=== PATIENT | female | born 1960 | race Caucasian/White ===

== ENCOUNTER 2018-11-12 20:07 | Emergency (ER) | payer BC ==
--- NOTE | 2018-11-12 21:26 | RAD REPORT ---
EXAM DESCRIPTION: [place] Single View11/12/2018 9:12 pm CLINICAL HISTORY: Chest pain COMPARISON: none FINDINGS: The lungs appear clear of acute infiltrate. The heart is normal size IMPRESSION: No acute abnormalities displayed
[2018-11-12 22:29] LABS: Absolute Lymphocytes (CBC) 1.1 K/uL (0.7-4.9); Basophils % 1.2 % (0-1.3); Eosinophils % 6.1 % (0-4.4); Hematocrit 21.4 % (36.0-45.0); Lymphocytes % 32.9 % (15.3-44.8); MPV 7.7 fL (7.6-11.3); Monocytes % 7.5 % (3.3-12.3); RBC Red Blood Cell Count 2.06 M/uL (3.86-4.86)
[2018-11-12 22:31] LABS: Protime INR 1.04
[2018-11-12 22:49] LABS: ALT/SGPT 28 U/L (12-78); AST/SGOT 17 U/L (15-37); Albumin 2.7 g/dL (3.4-5.0); Alkaline Phosphatase 66 U/L (45-117); BUN Blood Urea Nitrogen 15 mg/dL (7-18); Bicarbonate 24 mmol/L (21-32); Bilirubin Direct 0.2 mg/dL (0-0.2); Bilirubin Total 0.5 mg/dL (0.2-1.0); Creatine Phosphokinase 29 U/L (26-192); Glucose Level 235 mg/dL (74-106); Magnesium 1.7 mg/dL (1.8-2.4); NT PRO-BNP 2174 pg/mL (<125); Potassium 3.4 mmol/L (3.5-5.1); Protein, Total 6.2 g/dL (6.4-8.2); Sodium Level 144 mmol/L (136-145); Troponin (Emerg Dept Use Only) < 0.02 ng/mL (0.0-0.045)
[2018-11-12 22:56] LABS: Basophilic Stippling 1+; Blood Morphology Comment NOTED (NOT SEEN); Platelet Estimate DECR; Polychromasia 1+
[2018-11-12] MEDS ORDERED: ACETAMINOPHEN 325 MG TABLET ONE (23:43)
[2018-11-13] MEDS ORDERED: THIAMINE 200 MG/2 ML INJ ONE (00:04)
[2018-11-13] MEDS ORDERED: NA CHLORIDE 0.9% 100 ML IV ONE (00:05)
[2018-11-13] MEDS ORDERED: FOLIC ACID 5 MG/ML VIAL ONE (00:05)
[2018-11-13] MEDS ORDERED: NA CHLORIDE 0.9% 1,000 ML ONE ×3 (00:48→03:19)
[2018-11-13] MEDS ORDERED: NA CHLORIDE 0.9% 500 ML ONE (00:48)
--- NOTE | 2018-11-13 00:57 | EDPHYS ---
Physician Documentation [facility] Name: Cheri Medel Age: 58 yrs Sex: Female : 1960 Arrival Date: 11/12/2018 Time: 20:13 Bed 19 Private MD: ED Physician Rod London HPI: 11/13 06:39 This 58 yrs old Female presents to ER via Ambulatory with complaints of BODY gs ACHES. 06:39 The patient presents to the emergency department with rectal bleeding, bright red blood gs with bowel movement, melena. Onset: The symptoms/episode began/occurred 1 month(s) ago. Abdominal pain: none is appreciated. Associated signs and symptoms: Pertinent positives: chills,bodyaches. Historical: - Allergies: 11/12 20:36 trulicity; ak1 20:36 Demerol; ak1 20:36 Codeine; ak1 - Home Meds: 22:11 Zetia 10 mg oral tab 1 tab once daily [Active]; Synthroid 137 mcg Oral tab 1 tab once cc3 daily [Active]; furosemide 80 mg Oral tab [Active]; tramadol 50 mg Oral tab 1 tab every 4 hours [Active]; 22:11 Coricidin HBP oral oral [Active]; Aspirin 80 mg Oral once daily [Active]; irbesartan cc3 300 mg oral tab 1 tab once daily [Active]; prednisone 5 mg oral tab once daily [Active]; 22:11 methotrexate sodium 2.5 mg oral tab [Active]; alendronate cc3 sodium-cholecalciferol(vitamin D3) oral 70 mg 1 per week oral [Active]; Bystolic 10 mg oral tab 1 tab once daily [Active]; remacade infusion [Active]; Allopurinol Oral [Active]; tresiba 50 cc 1 injection per day [Active]; - PMHx: 20:36 Anemia; addrenal insufficency; ak1 - PSHx: 20:36 Cholecystectomy; ; breast reduction; addrenal gland removed on right; ak1 - Immunization history:: Adult Immunizations unknown. - Social history:: Smoking status: Patient/guardian denies using tobacco. - Ebola Screening: : No symptoms or risks identified at this time. ROS: 11/13 06:39 All other systems are negative. gs Exam: 06:39 Head/Face: Normocephalic, atraumatic. Eyes: Pupils equal round and reactive to light, gs extra-ocular motions intact. Lids and lashes normal. Conjunctiva and sclera are non-icteric and not injected. Cornea within normal limits. Periorbital areas with no swelling, redness, or edema. ENT: Nares patent. No nasal discharge, no septal abnormalities noted. Tympanic membranes are normal and external auditory canals are clear. Oropharynx with no redness, swelling, or masses, exudates, or evidence of obstruction, uvula midline. Mucous membranes moist. Neck: Trachea midline, no thyromegaly or masses palpated, and no cervical lymphadenopathy. Supple, full range of motion without nuchal rigidity, or vertebral point tenderness. No Meningismus. Chest/axilla: Normal chest wall appearance and motion. Nontender with no deformity. No lesions are appreciated. Cardiovascular: Regular rate and rhythm with a normal S1 and S2. No gallops, murmurs, or rubs. Normal PMI, no JVD. No pulse deficits. Respiratory: Lungs have equal breath sounds bilaterally, clear to auscultation and percussion. No rales, rhonchi or wheezes noted. No increased work of breathing, no retractions or nasal flaring. Abdomen/GI: Soft, non-tender, with normal bowel sounds. No distension or tympany. No guarding or rebound. No evidence of tenderness throughout. Back: No spinal tenderness. No costovertebral tenderness. Full range of motion. MS/ Extremity: Pulses equal, no cyanosis. Neurovascular intact. Full, normal range of motion. Neuro: Awake and alert, GCS 15, oriented to person, place, time, and situation. Cranial nerves II-XII grossly intact. Motor strength 5/5 in all extremities. Sensory grossly intact. Cerebellar exam normal. Normal gait. 06:39 Constitutional: The patient appears alert, awake. 06:39 Skin: Appearance: Color: pale. Vital Signs: 11/12 20:31 BP 155 / 81; Pulse 118; Resp 18; Temp 98.1; Pulse Ox 97% on R/A; Weight 86.18 kg (R); ak1 Height 5 ft. 7 in. (170.18 cm) (R); Pain 9/10; 21:30 BP 154 / 65; Pulse 107; Resp 18 S; Pulse Ox 96% on R/A; cc3 22:15 BP 148 / 68; Pulse 107; Resp 18 S; Pulse Ox 98% on R/A; cc3 23:00 BP 164 / 71; Pulse 109; Resp 26 S; Pulse Ox 96% on R/A; cc3 07 00:30 BP 139 / 63; Pulse 117; Resp 25 S; Temp 101(O); Pulse Ox 96% on R/A; cc3 01:00 BP 157 / 57; Pulse 113; Resp 22 S; Temp 100.9(O); Pulse Ox 98% on R/A; cc3 01:35 BP 136 / 70; Pulse 112; Resp 25 S; Temp 99.9(O); Pulse Ox 98% on R/A; cc3 01:40 BP 140 / 68; Pulse 109; Resp 26 S; Temp 99.9(O); Pulse Ox 96% on R/A; cc3 01:45 BP 139 / 74; Pulse 105; Resp 20 S; Temp 99.8(O); Pulse Ox 95% on R/A; cc3 01:50 BP 147 / 78; Pulse 106; Resp 22 S; Temp 99.4(O); Pulse Ox 95% on R/A; cc3 02:05 BP 141 / 55; Pulse 109; Resp 23 S; Temp 99.8(O); Pulse Ox 96% on R/A; cc3 02:35 BP 134 / 65; Pulse 93; Resp 23 S; Temp 99.7(O); Pulse Ox 96% on R/A; cc3 02:40 BP 141 / 63; Pulse 92; Resp 26 S; Temp 99.5(O); Pulse Ox 95% on R/A; cc3 03:00 BP 151 / 61; Pulse 93; Resp 23 S; Temp 99.1(O); Pulse Ox 94% on R/A; cc3 04:00 BP 158 / 61; Pulse 92; Resp 22 S; Temp 98.5(O); Pulse Ox 95% on 1 lpm NC; cc3 04:32 BP 158 / 64; Pulse 92; Resp 17 S; Temp 98.3(O); Pulse Ox 96% on 1 lpm NC; cc3 05:00 BP 153 / 59; Pulse 82; Resp 22 S; Temp 98.3(O); Pulse Ox 96% on 1 lpm NC; cc3 06:06 BP 157 / 67; Pulse 85; Resp 18 S; Temp 98.5(O); Pulse Ox 98% on 1 lpm NC; cc3 06:30 BP 107 / 83; Pulse 88; Resp 20 S; Temp 98.4(O); Pulse Ox 98% on 1 lpm NC; cc3 07 20:31 Body Mass Index 29.76 (86.18 kg, 170.18 cm) ak1 MDM: 11/12 20:38 Patient medically screened. 11/13 06:39 Differential diagnosis: diverticulitis, hemorrhoids. Data reviewed: vital signs, nurses gs notes. Data reviewed: lab test result(s), EKG, radiologic studies. Counseling: I had a detailed discussion with the patient and/or guardian regarding: the historical points, exam findings, and any diagnostic results supporting the discharge/admit diagnosis. Response to treatment: the patient's symptoms have markedly improved after treatment. ED course: PT DEVELOPED FEVER PRIOR TO GIVING BLOOD SEPSIS WORKUP ONLY SOURCE URINE GOOD DECREASE LACTATE PLAN TRANSFER [facility] THEY HAVE GI SERVICES.. 11/12 20:39 Order name: Basic Metabolic Panel; Complete Time: 23:09 11/12 20:39 Order name: CBC with Diff; Complete Time: 23:09 11/12 20:39 Order name: LFT's; Complete Time: 23:09 11/12 20:39 Order name: Magnesium; Complete Time: 23:09 11/12 20:39 Order name: NT PRO-BNP; Complete Time: 23:09 11/12 20:39 Order name: PT-INR; Complete Time: 23:09 11/12 20:39 Order name: Troponin (emerg Dept Use Only); Complete Time: 23:09 11/12 20:39 Order name: Flu; Complete Time: 22:32 11/12 20:39 Order name: CPK; Complete Time: 23:09 11/12 22:56 Order name: Manual Differential; Complete Time: 23:09 [facility] 11/12 23:09 Order name: T\T\S 11/13 00:11 Order name: Packed RBC Leukored [facility] 11/13 00:21 Order name: ABO/RH no charge; Complete Time: 00:52 EDRI 11/13 00:54 Order name: Blood Culture* 11/12 20:39 Order name: XRAY Chest (1 view); Complete Time: 21:28 11/13 00:54 Order name: Lactate; Complete Time: 01:58 11/13 00:54 Order name: Procalcitonin; Complete Time: 02:22 11/13 00:55 Order name: Blood Culture [facility] 11/13 01:12 Order name: Urine Dipstick--Ancillary (enter results); Complete Time: 01:58 ar 11/13 02:32 Order name: Urine Microscopic Only ar 11/13 02:33 Order name: Urine Microscopic Only; Complete Time: 03:26 EDRI 11/13 02:43 Order name: Urine Culture [facility] 11/13 04:57 Order name: Lactate Sepsis 2 HR Follow-up; Complete Time: 05:06 [facility] 11/12 20:39 Order name: EKG; Complete Time: 20:44 11/12 20:39 Order name: Cardiac monitoring; Complete Time: 20:40 11/12 20:39 Order name: EKG - Nurse/Tech; Complete Time: 20:49 11/12 20:39 Order name: IV Saline Lock; Complete Time: 22:49 11/12 20:39 Order name: Labs collected and sent; Complete Time: 22:49 11/12 20:39 Order name: O2 Per Protocol; Complete Time: 20:41 11/12 20:39 Order name: O2 Sat Monitoring; Complete Time: 20:41 gs Administered Medications: 11/12 23:30 Drug: Tylenol 650 mg Route: PO; cc3 11/13 00:00 Follow up: Response: No adverse reaction cc3 00:00 Drug: foLIC Acid 1 mg Route: IVPB; Site: left upper arm; cc3 00:30 Follow up: Response: No adverse reaction; IV Status: Completed infusion; IV Intake: [id number] 00:30 Drug: Thiamine 100 mg {Note: left upper arm midline.} Route: IV; Rate: calculated rate; cc3 Site: Other; 01:00 Follow up: Response: No adverse reaction; IV Status: Completed infusion; IV Intake: [id number] 00:30 Drug: NS 0.9% 1000 ml {Note: left upper arm midline.} Route: IV; Rate: 125 ml/hr; Site: [facility] Other; 04:39 Follow up: Response: No adverse reaction; IV Status: Infusion continued upon transfer cc3 01:00 Drug: Ibuprofen 600 mg Route: PO; cc3 01:35 Follow up: Response: No adverse reaction; Temperature is decreased cc3 02:01 CANCELLED (Duplicate Order): NS 0.9% 1000 ml IV at 1000 ml once cc3 02:40 Drug: NS 0.9% 1000 ml {Note: midline left upper arm.} Route: IV; Rate: 1 bolus; Site: [facility] Other; 04:00 Follow up: Response: No adverse reaction; IV Status: Completed infusion; IV Intake: cc3 1000ml 03:00 Drug: HydroCORTISONE 100 mg {Note: midline left upper arm.} Route: IVP; Site: Other; 3 03:15 Follow up: Response: No adverse reaction cc3 03:00 Drug: NS 0.9% 1000 ml {Note: midline left upper arm.} Route: IV; Rate: 1 bolus; Site: [facility] Other; 04:15 Follow up: Response: No adverse reaction; IV Status: Completed infusion; IV Intake: cc3 1000ml 03:15 Drug: Cefepime 1 grams {Note: midline left upper arm.} Route: IVPB; Rate: 200 ml/hr; cc3 Infused Over: 30 mins; Site: Other; 04:00 Follow up: Response: No adverse reaction; IV Status: Completed infusion; IV Intake: cc3 100ml Disposition: 11/13/18 00:[address] [facility]. Diagnosis are Anemia, unspecified, Gastrointestinal hemorrhage, unspecified, Fever, unspecified. - Reason for transfer: Higher level of care. - Accepting physician is ARTHUR. - Condition is Stable. - Problem is an acute exacerbation. - Symptoms have improved. Signatures: Dispatcher [employer] Amisha Latif RN RN ak1 Rod London MD MD gs Cordel, Charlene cc3 Corrections: (The following items were deleted from the chart) 02:01 02:00 NS 0.9% 1000 ml IV at 1000 ml once ordered. cc3 cc3 06:42 00:57 11/13/2018 00:[address] [facility]. Diagnosis is cc3 Anemia, unspecified; Gastrointestinal hemorrhage, unspecified; Fever, unspecified. Reason for transfer: Higher level of care. Accepting physician is RATHUR. Condition is Stable. Problem is an acute exacerbation. Symptoms have improved. gs
--- NOTE | 2018-11-13 00:57 | ER ---
Nurse's Notes [facility] Name: Cheri Medel Age: 58 yrs Sex: Female : 1960 Arrival Date: 11/12/2018 Time: 20:13 Bed 19 Private MD: Diagnosis: Anemia, unspecified;Gastrointestinal hemorrhage, unspecified;Fever, unspecified Presentation: 11/12 20:33 Presenting complaint: Patient states: fatigue X2 days, body aches. pt stated she has an ak1 appointment Friday with her GI at [facility]. pt stated she has had black stools with bright red blood for "months" pt seen and admitted to [facility] last month with pneumonia and was given 2 units of blood, pt believes she is more anemic than usual. Transition of care: patient was not received from another setting of care. Onset of symptoms was November 10, 2018. Risk Assessment: Do you want to hurt yourself or someone else? Patient reports no desire to harm self or others. Initial Sepsis Screen: Does the patient meet any 2 criteria? No. Patient's initial sepsis screen is negative. Does the patient have a suspected source of infection? No. Patient's initial sepsis screen is negative. Care prior to arrival: None. 20:33 Acuity: DAVID 3 ak1 20:33 Method Of Arrival: Ambulatory ak1 Triage Assessment: 20:37 General: Appears in no apparent distress. ill, Behavior is calm, cooperative. ak1 Historical: - Allergies: 20:36 trulicity; ak1 20:36 Demerol; ak1 20:36 Codeine; ak1 - Home Meds: 22:11 Zetia 10 mg oral tab 1 tab once daily [Active]; Synthroid 137 mcg Oral tab 1 tab once cc3 daily [Active]; furosemide 80 mg Oral tab [Active]; tramadol 50 mg Oral tab 1 tab every 4 hours [Active]; 22:11 Coricidin HBP oral oral [Active]; Aspirin 80 mg Oral once daily [Active]; irbesartan cc3 300 mg oral tab 1 tab once daily [Active]; prednisone 5 mg oral tab once daily [Active]; 22:11 methotrexate sodium 2.5 mg oral tab [Active]; alendronate cc3 sodium-cholecalciferol(vitamin D3) oral 70 mg 1 per week oral [Active]; Bystolic 10 mg oral tab 1 tab once daily [Active]; remacade infusion [Active]; Allopurinol Oral [Active]; tresiba 50 cc 1 injection per day [Active]; - PMHx: 20:36 Anemia; addrenal insufficency; ak1 - PSHx: 20:36 Cholecystectomy; ; breast reduction; addrenal gland removed on right; ak1 - Immunization history:: Adult Immunizations unknown. - Social history:: Smoking status: Patient/guardian denies using tobacco. - Ebola Screening: : No symptoms or risks identified at this time. Screenin:37 Abuse screen: Denies threats or abuse. Denies injuries from another. Nutritional ak1 screening: No deficits noted. Tuberculosis screening: No symptoms or risk factors identified. Fall Risk None identified. Assessment: 20:29 General: Appears in no apparent distress. uncomfortable, Behavior is calm, cooperative, cc3 appropriate for age. Pain: Complains of pain in generalized bodyaches. Neuro: Level of Consciousness is awake, alert, obeys commands, Oriented to person, place, time, situation, Appropriate for age. Cardiovascular: Patient's skin is warm and dry. Rhythm is sinus tachycardia. Respiratory: Airway is patent Respiratory effort is even, unlabored, Respiratory pattern is regular, symmetrical. GI: Abdomen is round Parent/caregiver reports the patient having black and bloody stools since months. : No signs and/or symptoms were reported regarding the genitourinary system. EENT: No signs and/or symptoms were reported regarding the EENT system. Derm: Skin is intact, is healthy with good turgor, Skin is pale. Musculoskeletal: Range of motion: intact in all extremities. 21:38 Reassessment: Patient appears in no apparent distress at this time. Patient and/or cc3 family updated on plan of care and expected duration. Pain level reassessed. Patient is alert, oriented x 3, equal unlabored respirations, skin warm/dry/pink. Missed phlebotomy attempts so called laboratory to do blood extraction and lab said they'll send someone to do it. 22:05 Reassessment: Patient appears in no apparent distress at this time. Patient and/or cc3 family updated on plan of care and expected duration. Pain level reassessed. Patient is alert, oriented x 3, equal unlabored respirations, skin warm/dry/pink. oral surgery technician came and did phlebotomy for the patient. 22:55 Reassessment: oral surgery technician Marissa called for critical hemoglobin result of cc3 7.0, Dr. London informed. 23:45 Reassessment: Patient appears in no apparent distress at this time. Patient and/or cc3 family updated on plan of care and expected duration. Pain level reassessed. Patient is alert, oriented x 3, equal unlabored respirations, skin warm/dry/pink. Dr. London at bedside explaining to the patient his plan of care that she'll be needing blood transfusion here then for transfer to other facility for higher level of care. Dr. London said the patient will be needing another IV access with a larger bore for blood transfusion. 11/13 00:30 Reassessment: Patient and/or family updated on plan of care and expected duration. Pain cc3 level reassessed. Patient is alert, oriented x 3, equal unlabored respirations, skin warm/dry/pink. FANY Almeida from ICU inserted a midline IV access to the patient's left upper arm. Patient consented for packed red blood cell transfusion. 01:35 Reassessment: Patient appears in no apparent distress at this time. Patient and/or cc3 family updated on plan of care and expected duration. Pain level reassessed. Patient is alert, oriented x 3, equal unlabored respirations, skin warm/dry/pink. 1st unit of packed RBC started counterchecked and countersigned with FANY Sanchez. Monitored the patient closely for any adverse reaction. Vital signs charted in the transfusion record form. 01:56 Reassessment: oral surgery technician Marissa called and relayed critical lab result of cc3 Lactic Acid 3.7, Dr. London informed and ordered to give a liter of NS bolus. 02:15 Reassessment: Patient appears in no apparent distress at this time. Patient and/or cc3 family updated on plan of care and expected duration. Pain level reassessed. Patient is alert, oriented x 3, equal unlabored respirations, skin warm/dry/pink. Patient's previous IV cannula on the left arm is not flushing anymore, and the left arm midline has only one port, informed charge nurse Rosalva and was told to run the blood fast over 30 minutes since the patient is not a renal patient and to start the bolus of NS after the blood transfusion. 02:40 Reassessment: Patient appears in no apparent distress at this time. Patient and/or cc3 family updated on plan of care and expected duration. Pain level reassessed. Patient is alert, oriented x 3, equal unlabored respirations, skin warm/dry/pink. 1 unit of packed RBC completed, patient tolerated and vital signs charted. Charge nurse Rosalva said no need to start the second unit of packed RBC as the patient is for transfer at least the first unit is completed and the patient needs to be started on IV fluids and IV antibiotics. 02:45 Reassessment: Called for report to [facility] but as per electronic funds transfer coordinatordrier transfer car operator cc3 Linda London has just spoken with their Dr. Layotn and they want repeat lactate to be done before they can get report, charge nurse Rosalva informed. 03:30 Reassessment: Patient appears in no apparent distress at this time. Patient and/or cc3 family updated on plan of care and expected duration. Pain level reassessed. Patient is alert, oriented x 3, equal unlabored respirations, skin warm/dry/pink. 04:20 Reassessment: Patient appears in no apparent distress at this time. Patient and/or cc3 family updated on plan of care and expected duration. Pain level reassessed. Patient is alert, oriented x 3, equal unlabored respirations, skin warm/dry/pink. Second liter of bolus fluids completed. Repeat lactate level sent to lab as ordered. 05:00 Reassessment: Patient appears in no apparent distress at this time. Patient and/or cc3 family updated on plan of care and expected duration. Pain level reassessed. Patient is alert, oriented x 3, equal unlabored respirations, skin warm/dry/pink. Repeat lactate level of 1.2, called [facility] for report but as per drier transfer car operator there should be a doctor to doctor report first of the result of repeat lactate because they will have to determine if the patient will go to ICU, charge nurse Blackwell and Dr. London informed. 05:10 Reassessment: spa coordinator of [facility] named Linda called and said cc3 they're ready to receive report for the patient. Report given to FANY Leach. Transfer form completed and signed by the patient. EMS contacted by ED charge out clerkalberto Marquez. 05:39 Reassessment: Patient appears in no apparent distress at this time. Patient and/or cc3 family updated on plan of care and expected duration. Pain level reassessed. Patient is alert, oriented x 3, equal unlabored respirations, skin warm/dry/pink. ED charge out clerkmacho Marquez said EMS will arrive at 0600H, patient informed. Patient denies pain at this time. Patient states feeling better. Patient states symptoms have improved. 06:30 Reassessment: Patient appears in no apparent distress at this time. Patient and/or cc3 family updated on plan of care and expected duration. Pain level reassessed. Patient is alert, oriented x 3, equal unlabored respirations, skin warm/dry/pink. [facility] came for patient transport. 06:40 Reassessment: Patient appears in no apparent distress at this time. Patient and/or cc3 family updated on plan of care and expected duration. Pain level reassessed. Patient is alert, oriented x 3, equal unlabored respirations, skin warm/dry/pink. Patient left ER for transport vitally stable by EMS stretcher with her . Patient denies pain at this time. Patient states feeling better. Patient states symptoms have improved. Vital Signs: 11/12 20:31 BP 155 / 81; Pulse 118; Resp 18; Temp 98.1; Pulse Ox 97% on R/A; Weight 86.18 kg (R); ak1 Height 5 ft. 7 in. (170.18 cm) (R); Pain 9/10; 21:30 BP 154 / 65; Pulse 107; Resp 18 S; Pulse Ox 96% on R/A; cc3 22:15 BP 148 / 68; Pulse 107; Resp 18 S; Pulse Ox 98% on R/A; cc3 23:00 BP 164 / 71; Pulse 109; Resp 26 S; Pulse Ox 96% on R/A; cc3 11/13 00:30 BP 139 / 63; Pulse 117; Resp 25 S; Temp 101(O); Pulse Ox 96% on R/A; cc3 01:00 BP 157 / 57; Pulse 113; Resp 22 S; Temp 100.9(O); Pulse Ox 98% on R/A; cc3 01:35 BP 136 / 70; Pulse 112; Resp 25 S; Temp 99.9(O); Pulse Ox 98% on R/A; cc3 01:40 BP 140 / 68; Pulse 109; Resp 26 S; Temp 99.9(O); Pulse Ox 96% on R/A; cc3 01:45 BP 139 / 74; Pulse 105; Resp 20 S; Temp 99.8(O); Pulse Ox 95% on R/A; cc3 01:50 BP 147 / 78; Pulse 106; Resp 22 S; Temp 99.4(O); Pulse Ox 95% on R/A; cc3 02:05 BP 141 / 55; Pulse 109; Resp 23 S; Temp 99.8(O); Pulse Ox 96% on R/A; cc3 02:35 BP 134 / 65; Pulse 93; Resp 23 S; Temp 99.7(O); Pulse Ox 96% on R/A; cc3 02:40 BP 141 / 63; Pulse 92; Resp 26 S; Temp 99.5(O); Pulse Ox 95% on R/A; cc3 03:00 BP 151 / 61; Pulse 93; Resp 23 S; Temp 99.1(O); Pulse Ox 94% on R/A; cc3 04:00 BP 158 / 61; Pulse 92; Resp 22 S; Temp 98.5(O); Pulse Ox 95% on 1 lpm NC; cc3 04:32 BP 158 / 64; Pulse 92; Resp 17 S; Temp 98.3(O); Pulse Ox 96% on 1 lpm NC; cc3 05:00 BP 153 / 59; Pulse 82; Resp 22 S; Temp 98.3(O); Pulse Ox 96% on 1 lpm NC; cc3 06:06 BP 157 / 67; Pulse 85; Resp 18 S; Temp 98.5(O); Pulse Ox 98% on 1 lpm NC; cc3 06:30 BP 107 / 83; Pulse 88; Resp 20 S; Temp 98.4(O); Pulse Ox 98% on 1 lpm NC; cc3 11/12 20:31 Body Mass Index 29.76 (86.18 kg, 170.18 cm) ak1 ED Course: 11/12 20:13 Patient arrived in ED. es 20:19 Rod London MD is Attending Physician. gs 20:29 Dianne Reynoso is Primary Nurse. cc3 20:31 Arm band placed on Patient placed in an exam room, on a stretcher, on pulse oximetry, ak1 Patient notified of wait time. 20:35 Triage completed. ak1 20:36 Patient has correct armband on for positive identification. Placed in gown. Bed in low ak1 position. Call light in reach. Side rails up X 1. Pulse ox on. NIBP on. 21:00 Missed attempt(s): 20 gauge in right antecubital area. intact, bleeding controlled, cc3 band aid applied, catheter tip intact. 21:13 XRAY Chest (1 view) In Process Unspecified. EDMS 21:30 Missed attempt(s): 22 gauge in left forearm. Bleeding controlled, band aid applied, aa1 catheter tip intact. 21:35 Inserted saline lock: 22 gauge in left upper arm, using aseptic technique. aa1 07 00:30 Inserted saline lock: in left upper arm, using aseptic technique. ,using aseptic cc3 technique. midline IV access inserted by FANY Almeida of ICU. 06:40 No provider procedures requiring assistance completed. Patient transferred, IV remains cc3 in place. Administered Medications: 11/12 23:30 Drug: Tylenol 650 mg Route: PO; cc3 11/13 00:00 Follow up: Response: No adverse reaction cc3 00:00 Drug: foLIC Acid 1 mg Route: IVPB; Site: left upper arm; cc3 00:30 Follow up: Response: No adverse reaction; IV Status: Completed infusion; IV Intake: [id number] 00:30 Drug: Thiamine 100 mg {Note: left upper arm midline.} Route: IV; Rate: calculated rate; cc3 Site: Other; 01:00 Follow up: Response: No adverse reaction; IV Status: Completed infusion; IV Intake: [id number] 00:30 Drug: NS 0.9% 1000 ml {Note: left upper arm midline.} Route: IV; Rate: 125 ml/hr; Site: 3 Other; 04:39 Follow up: Response: No adverse reaction; IV Status: Infusion continued upon transfer cc3 01:00 Drug: Ibuprofen 600 mg Route: PO; cc3 01:35 Follow up: Response: No adverse reaction; Temperature is decreased cc3 02:01 CANCELLED (Duplicate Order): NS 0.9% 1000 ml IV at 1000 ml once cc3 02:40 Drug: NS 0.9% 1000 ml {Note: midline left upper arm.} Route: IV; Rate: 1 bolus; Site: [facility] Other; 04:00 Follow up: Response: No adverse reaction; IV Status: Completed infusion; IV Intake: cc3 1000ml 03:00 Drug: HydroCORTISONE 100 mg {Note: midline left upper arm.} Route: IVP; Site: Other; cc3 03:15 Follow up: Response: No adverse reaction cc3 03:00 Drug: NS 0.9% 1000 ml {Note: midline left upper arm.} Route: IV; Rate: 1 bolus; Site: [facility] Other; 04:15 Follow up: Response: No adverse reaction; IV Status: Completed infusion; IV Intake: cc3 1000ml 03:15 Drug: Cefepime 1 grams {Note: midline left upper arm.} Route: IVPB; Rate: 200 ml/hr; cc3 Infused Over: 30 mins; Site: Other; 04:00 Follow up: Response: No adverse reaction; IV Status: Completed infusion; IV Intake: cc3 100ml Intake: 00:30 IV: 50ml; Total: 50ml. cc3 01:00 IV: 50ml; Total: 100ml. cc3 04:00 IV: 100ml; Total: 200ml. cc3 04:00 IV: 1000ml; Total: 1200ml. cc3 04:15 IV: 1000ml; Total: 2200ml. cc3 Outcome: 00:57 ER care complete, transfer ordered by . 05:10 Transferred by ground EMS to [facility], Transfer form completed. cc3 05:10 Condition: stable 05:10 Instructed on the need for transfer, Demonstrated understanding of instructions. 06:42 Patient left the ED. cc3 Addendum: 11/16/2018 15:41 Addendum: Culture Results: Positive urine culture. Phone call Attempt #1 Culture report s s faxed to [facility] [phone]. Signatures: Dispatcher [employer] Rosalva Novoa RN RN aa1 Latesha Leiva Shelby, RN RN ss Amisha Gambino RN RN ak1 Rod London MD MD gs Cordel, Charlene cc3 Corrections: (The following items were deleted from the chart) 11/12 21:38 21:00 Missed attempt(s): 20 gauge in right antecubital area. cc3 cc3 11/13 01:22 01:00 BP 157 / 57; Pulse 113bpm; Resp 22bpm; Spontaneous; Pulse Ox 98% RA; cc3 cc3 03:41 02:15 Reassessment: Patient appears in no apparent distress at this time. Patient cc3 and/or family updated on plan of care and expected duration. Pain level reassessed. Patient is alert, oriented x 3, equal unlabored respirations, skin warm/dry/pink. Patient's previous IV cannula on the left arm is not flushing anymore, and the left arm midline has only one port, informed charge nurse Rosalva and was told to run the blood fast over 30 minutes since the patient is not a renal patient and to start the bolus of NS 1 liter after the blood transfusion. cc3 03:51 02:40 Reassessment: Patient appears in no apparent distress at this time. Patient cc3 and/or family updated on plan of care and expected duration. Pain level reassessed. Patient is alert, oriented x 3, equal unlabored respirations, skin warm/dry/pink. 1 unit of packed RBC completed, patient tolerated and vital signs charted. cc3 05:38 00:30 Reassessment: Patient and/or family updated on plan of care and expected cc3 duration. Pain level reassessed. Patient is alert, oriented x 3, equal unlabored respirations, skin warm/dry/pink. FANY Almeida from ICU inserted a midline IV access to the patient's left upper arm. cc3 06:07 05:00 BP 153 / 59; Pulse 82bpm; Resp 22bpm; Spontaneous; Pulse Ox 96% RA; Temp 98.3F cc3 Oral; cc3
[2018-11-13 01:16] LABS: Urine Blood NEGATIVE (NEG); Urine Glucose TRACE (NEG); Urine Protein 2+ (NEG); Urine Specific Gravity 1.015 (1.005-1.030); Urine pH 5.5 (5.0-7.0)
[2018-11-13] MEDS ORDERED: IBUPROFEN 200 MG TAB PO ONE (01:18)
[2018-11-13] MEDS ORDERED: IBUPROFEN 400 MG TAB ONE (01:18)
[2018-11-13 02:41] LABS: Urine Amorphous Sediment TRACE /HPF (NONE SEEN); Urine Bacteria 20-50 /HPF (<20); Urine Culture Reflex Order REFLEXED; Urine RBC NONE SEEN /HPF (NONE SEEN)
[2018-11-13] MEDS ORDERED: HYDROCORTISONE SUC 100 MG INJ ONE (03:19)
[2018-11-13] MEDS ORDERED: CEFEPIME 1 GM/100 ML BAG IV ONE (03:30)
--- NOTE | 2018-11-13 08:53 | EKG ---
Test Date: 2018-11-12 Test Time: 20:46:40 Insights Strategist: JOE MEASUREMENT RESULTS: Intervals: Rate: 113 ID: [id number] QRSD: 88 QT: 328 QTc: 449 [place]: P: 45 ID: [id number] QRS: 20 T: 47 INTERPRETIVE STATEMENTS: Sinus tachycardia Nonspecific ST and T wave abnormality Abnormal ECG No previous ECG available for comparison Electronically Signed On 11-13-18 08:52:36 CDT by Fuad Vega
== END 2018-11-13 06:42 | disposition short-term general hospital (02) ==
LOC: ER 20:07
PROC: 30233N1 Transfusion of Nonautologous Red Blood Cells into Peripheral Vein, Percutaneous Approach (ICD-10-PCS; principal; 2018-11-13)
DX: D64.9 Anemia, unspecified (principal); R50.9 Fever, unspecified; E27.40 Unspecified adrenocortical insufficiency; Z79.82 Long term (current) use of aspirin; Z88.5 Allergy status to narcotic agent; Z88.8 Allergy status to other drugs, medicaments and biological substances
CPT/HCPCS: 36415; 71045; 80048; 80076; 81003; 81015; 82550; 83605; 83735; 83880; 84145; 84484; 85025; 85610; 86850; 86900; 86901; 87040; 87077; 87086; 87088; 87186; 87804; 93005; 99285; J0692; J1720; J7030; P9016